=== PATIENT | female | born 1970 | race Two or more races ===

== ENCOUNTER 2025-04-18 11:03 | Inpatient (IN) | payer OTHER ==
[~2025-04-18] VITALS: Ht 157.5 cm; Wt 74.4 kg
[2025-04-18] MEDS ORDERED: VITAMIN D325 MC2 PO (12:15)
--- NOTE | 2025-04-18 12:16 | NUR ---
SE RECIBE PACIENTE FEMENINA DE 55 ANOS [address] ALERTA Y ORIENTADA X3 REFIERE VENIR POR DOLOR ABDOMINAL INTERMITENTE, VOMITOS X6 EL CRISTINA DE DARIAN.
[2025-04-18] MEDS ORDERED: KETOROLAC TROMETHAMINE 30 MG VIAL IV STA (13:30)
[2025-04-18] MEDS ORDERED: ORPHENADRINE CITRATE 30 MG/ML AMPUL IV STA ×2 (13:30→18:39)
[2025-04-18] MEDS ORDERED: FAMOTIDINE/PF 20 MG/2 ML VIAL IV STA (13:32)
[2025-04-18] MEDS ORDERED: 0.9 % SODIUM CHLORIDE 1,000 ML IV STA (13:32)
--- NOTE | 2025-04-18 14:19 | NUR ---
SE ORIENTA PTE SOBRE TX MEDICO Y PTE REFIERE ENTENDER. SE ADMINISTRAN MEDICAMENTOS Y SE TANIKA MUESTRAS SHANIQUE ORDEN MEDICA BAJO MEDIDAS ASEPTICAS.
[2025-04-18 14:22] LABS: BASO % 0.2 % (0.1-1.2); EOS # 0.01 (0.04-0.54); EOS % 0.1 % (0.7-7.0); LYMPH # 0.58 (1.18-3.74); LYMPH % 3.6 % (19.3-53.1); MEAN PLATELET VOLUME 10.40 fl (9.4-12.4); MONO # 0.91 (0.24-0.82); MONO % 5.7 % (4.7-12.5); NEUT # 14.44 (1.56-6.13); NEUT % 90.0 % (34.0-71.1); RED CELL DISTRIBUTION WIDTH 13.4 % (11.6-14.4)
[2025-04-18 14:43] LABS: ALT/SGPT 17.0 U/L (12-78); AST/SGOT 19.0 U/L (15-37); BILIRUBIN TOTAL 0.5 mg/dL (0.3-1.2); BUN CREA RATIO 11.0 (7.0-25.0); CREATININE SERUM 0.71 mg/dL (0.55-1.02); GFR 86.11; GLOBULINA 4.1 G/DL (2.4-3.5); GLUCOSE FASTING 120.0 mg/dL (65-100); OSMOLALITY SERUM 279.0 MOSM/KG (275-295)
[2025-04-18] MEDS ORDERED: KETOROLAC TROMETHAMINE 30 MG VIAL IU STA (18:38)
[2025-04-18] MEDS ORDERED: PANTOPRAZOLE SODIUM 40 MG/VIAL VIAL IV ONE (22:00)
[2025-04-18] MEDS ORDERED: CIPROFLOXACIN IN 5 % DEXTROSE 200 ML IV SCH (22:01)
[2025-04-18] MEDS ORDERED: MORPHINE SULFATE 4 MG/ML CARTRIDGE IV PRN (22:15)
[2025-04-18] MEDS ORDERED: MORPHINE SULFATE 4 MG/ML CARTRIDGE IV ONE (22:15)
[2025-04-18] MEDS ORDERED: PANTOPRAZOLE SODIUM 80 MG in 0.9 % SODIUM CHLORIDE 100 ML IV SCH (22:15)
[2025-04-18] MEDS ORDERED: ONDANSETRON HCL 4 MG in 0.9 % SODIUM CHLORIDE 50 ML IV PRN (22:15)
[2025-04-19 03:49] LABS: INR 1.24
[2025-04-19 04:19] LABS: URINE APPEARANCE Clear; URINE BILIRRUBIN Negative (NEGATIVE); URINE BLOOD Small; URINE COLOR Dark Yellow; URINE GLUCOSE Negative (NEGATIVE); URINE LEUKOCYTE Negative; URINE NITRATE Negative; URINE PROTEIN 30 (NEGATIVE); URINE UROBILINOGEN 0.2 E.U./dl
[2025-04-19 04:23] LABS: URINE BACTERIA 100.7 uL (0.0-1933); URINE EPITHELIAL CELLS 23.9 uL (0.0-38.8); URINE RBC 36.2 uL (0.0-20.8); URINE WBC 159.4 uL (0.0-23.2)
[2025-04-19 04:31] LABS: URINE CAST 0.00 uL (0.0-1.40); URINE KETONE >=160 (NEGATIVE)
[2025-04-19 07:27] VITALS: BP 132/72; O2SAT 97
[2025-04-19] MEDS ORDERED: PIPERACILLIN/TAZOBACTAM SODIUM 3.375 GM in DEXTROSE 5 % IN WATER 100 ML IV SCH (14:00)
[2025-04-19] MEDS ORDERED: FLUCONAZOLE IN NACL,ISO-OSM 400 MG/200 ML PIGGYBAG IV NR (17:00)
[2025-04-19 17:08] VITALS: BP 126/74; O2SAT 99
[2025-04-20 01:33] VITALS: BP 118/76; O2SAT 98
[2025-04-20 06:09] LABS: BASO % 0.2 % (0.1-1.2); EOS # 0.18 (0.04-0.54); EOS % 1.0 % (0.7-7.0); LYMPH # 1.43 (1.18-3.74); LYMPH % 7.9 % (19.3-53.1); MEAN PLATELET VOLUME 11.10 fl (9.4-12.4); MONO # 1.06 (0.24-0.82); MONO % 5.9 % (4.7-12.5); NEUT # 15.26 (1.56-6.13); NEUT % 84.5 % (34.0-71.1); RED CELL DISTRIBUTION WIDTH 13.6 % (11.6-14.4)
[2025-04-20 06:22] LABS: ob NEGATIVE (NEGATIVE)
[2025-04-20 07:18] LABS: ALT/SGPT 14.0 U/L (12-78); AST/SGOT 16.0 U/L (15-37); BILIRUBIN TOTAL 0.63 mg/dL (0.3-1.2); BUN CREA RATIO 14.0 (7.0-25.0); CREATININE SERUM 0.65 mg/dL (0.55-1.02); GFR 95.35; GLOBULINA 4.1 G/DL (2.4-3.5); GLUCOSE FASTING 92.0 mg/dL (65-100); LDH 175.0 U/L (84-246); OSMOLALITY SERUM 278.0 MOSM/KG (275-295)
[2025-04-20 08:41] VITALS: BP 128/85; O2SAT 97
[2025-04-20] MEDS ORDERED: FLUCONAZOLE IN NACL,ISO-OSM 100 ML IV SCH (12:00)
[2025-04-20] MEDS ORDERED: fentaNYL CITRATE 50 MCG/ML AMPUL IV PUSH ONE (13:00)
[2025-04-20] MEDS ORDERED: MIDAZOLAM HCL 2 MG/2 ML VIAL IV ONE (13:00)
[2025-04-20] MEDS ORDERED: DIPHENHYDRAMINE HCL 50 MG/ML VIAL 1ML IV ONE (13:00)
[2025-04-20 18:53] VITALS: BP 153/85; O2SAT 98
[2025-04-21 00:43] VITALS: BP 135/84; O2SAT 98
[2025-04-21 06:15] LABS: BASO % 0.3 % (0.1-1.2); EOS # 0.19 (0.04-0.54); EOS % 2.0 % (0.7-7.0); LYMPH # 0.90 (1.18-3.74); LYMPH % 9.3 % (19.3-53.1); MEAN PLATELET VOLUME 11.40 fl (9.4-12.4); MONO # 0.80 (0.24-0.82); MONO % 8.2 % (4.7-12.5); NEUT # 7.78 (1.56-6.13); NEUT % 80.0 % (34.0-71.1); RED CELL DISTRIBUTION WIDTH 13.4 % (11.6-14.4)
[2025-04-21 07:57] VITALS: BP 141/84
[2025-04-21] MEDS ORDERED: DIATRIZOATE MEGLUMINE, SODIUM 30 ML BOTTLE PO NR (08:30)
[2025-04-21 16:42] VITALS: BP 132/97
[2025-04-22 02:00] VITALS: BP 135/79; O2SAT 97
[2025-04-22 06:19] LABS: BASO % 0.2 % (0.1-1.2); EOS # 0.22 (0.04-0.54); EOS % 2.6 % (0.7-7.0); LYMPH # 0.97 (1.18-3.74); LYMPH % 11.6 % (19.3-53.1); MEAN PLATELET VOLUME 11.10 fl (9.4-12.4); MONO # 0.97 (0.24-0.82); MONO % 11.6 % (4.7-12.5); NEUT # 6.16 (1.56-6.13); NEUT % 73.6 % (34.0-71.1); RED CELL DISTRIBUTION WIDTH 13.3 % (11.6-14.4)
[2025-04-22 08:31] VITALS: BP 143/78
[2025-04-22] MEDS ORDERED: DEXTROSE 5%-WATER 100ML IV.SOLN ONE ×2 (09:00→10:12)
[2025-04-22] MEDS ORDERED: PANTOPRAZOLE SODIUM 80 MG in 0.9 % SODIUM CHLORIDE 100 ML IV SCH (10:15)
[2025-04-22 17:29] VITALS: BP 127/70; O2SAT 987
[2025-04-23 04:25] VITALS: BP 106/67; O2SAT 98
[2025-04-23 09:56] VITALS: BP 100/73; O2SAT 99
[2025-04-23 18:10] VITALS: BP 159/83
[2025-04-24 02:03] VITALS: BP 121/72; O2SAT 99
[2025-04-24 09:33] VITALS: BP 142/79
[2025-04-24 18:08] VITALS: BP 160/85; O2SAT 100
[2025-04-24] MEDS ORDERED: PANTOPRAZOLE SODIUM 40 MG TABLET.DR PO SCH (21:00)
[2025-04-25 01:53] VITALS: BP 121/78; O2SAT 99
[2025-04-25 07:59] VITALS: BP 133/85
[2025-04-25 18:34] VITALS: BP 151/72; O2SAT 100
[2025-04-26 02:01] VITALS: BP 138/81; O2SAT 98
[2025-04-26 08:00] VITALS: BP 126/70
== END 2025-04-26 16:40 | disposition home or self-care (01) | DRG 391 ==
LOC: ER 11:03 → MEDJ 22:16 → SEC-K 22:16 → SURH 04-19 10:04 → MEDJ 04-19 10:44
PROVIDERS: General Practice; Internal Medicine Infectious Disease; ADMIT Internal Medicine; ATTEND Internal Medicine
PROC: BW40ZZZ Ultrasonography of Abdomen (ICD-10-PCS; principal; 2025-04-18)
PROC: BW21Y0Z Computerized Tomography (CT Scan) of Abdomen and Pelvis using Other Contrast, Unenhanced and Enhanced (ICD-10-PCS; 2025-04-18)
PROC: 0DB78ZX Excision of Stomach, Pylorus, Via Natural or Artificial Opening Endoscopic, Diagnostic (ICD-10-PCS; 2025-04-20)
PROC: BW21Y0Z Computerized Tomography (CT Scan) of Abdomen and Pelvis using Other Contrast, Unenhanced and Enhanced (ICD-10-PCS; 2025-04-21)
DX: K29.50 Unspecified chronic gastritis without bleeding (principal); K65.1 Peritoneal abscess; R63.0 Anorexia; K27.9 Peptic ulcer, site unspecified, unspecified as acute or chronic, without hemorrhage or perforation; K31.89 Other diseases of stomach and duodenum; R93.3 Abnormal findings on diagnostic imaging of other parts of digestive tract